=== PATIENT | female | born 1995 | race Caucasian/White ===

== ENCOUNTER 2024-01-31 13:27 | Inpatient (IN) | payer MEDICAID ==
[~2024-01-31] VITALS: Ht 157.5 cm; Wt 80.7 kg
[2024-01-31 14:17] VITALS: BP_SYST 126; PULSE 84; RESP 18; TEMP 97; O2SAT 100
[2024-01-31 15:06] LABS: BASOPHILS % (AUTO) 0.2 % (0.0-2.0); EOSINOPHILS # (AUTO) 0.1 K/uL (0.0-0.4); EOSINOPHILS % (AUTO) 1.1 % (0.0-4.0); HEMATOCRIT 39.5 % (36-48); HEMOGLOBIN 13.1 g/dL (12.0-16.0); LYMPHOCYTES # (AUTO) 1.3 K/uL (1.0-5.5); LYMPHOCYTES % (AUTO) 24.1 % (20.5-51.5); MEAN CORPUSCULAR HEMOGLOBIN 29 pg (27-31); MEAN CORPUSCULAR HGB CONC 33 % (32-36); MEAN CORPUSCULAR VOLUME 87 fL (79.0-98.0); MONOCYTES # (AUTO) 0.5 K/uL (0.0-1.0); MONOCYTES % (AUTO) 9.5 % (1.7-9.3); NEUTROPHILS # (AUTO) 3.5 K/uL (1.8-7.7); NEUTROPHILS % (AUTO) 65.1 % (40.0-70.0); PLATELET COUNT (AUTO) 246 K/uL (130-430); RED BLOOD CELL COUNT(AUTO) 4.53 MIL/uL (4.2-6.2); RED CELL DISTRIBUTION WIDTH 15.1 % (9.0-15.0); WHITE BLOOD COUNT (AUTO) 5.3 K/uL (4.8-10.8)
[2024-01-31 16:40] LABS: ALBUMIN 4.1 g/dL (3.4-4.8); BILIRUBIN,DIRECT 0.2 mg/dL (0.0-0.3); CREATININE 0.98 mg/dL (0.55-1.30); TOTAL BILIRUBIN 0.9 mg/dL (0.0-1.0); TOTAL PROTEIN, SERUM 9.1 g/dL (6.4-8.3)
[2024-01-31] MEDS: PIPERACILLIN/TAZO 3.375 GM in D5W 50 ML IV SCH (19:15)
[2024-01-31] MEDS ORDERED: LEVO125T8 PO (19:29)
[2024-01-31] MEDS ORDERED: MORPHINE 4 MG INJ. 4 MG/ML VIAL IVP PRN (19:30)
[2024-01-31 19:41] LABS: CALCIUM 9.5 mg/dL (8.4-11.0)
[2024-01-31] MEDS ORDERED: PIPERACILLIN/TAZOBACTAM 3.375 GM/VIAL (ZOSYN) IV ONE (19:56)
[2024-01-31] MEDS: NACL 0.9% 1,000 ML IV ONE (20:15)
[2024-01-31] MEDS: KETOROLAC TROMETHAMINE 30 MG VIAL IVP ONE (20:17)
[2024-01-31] MEDS: D5/0.45 NS 1,000 ML IV SCH (20:18)
[2024-01-31] MEDS ORDERED: LORazepam 2 MG/ML VIAL IVP PRN (23:00)
[2024-01-31] MEDS ORDERED: ONDANSETRON HCL 4 MG/2 ML VIAL IVP PRN (23:00)
[2024-01-31 23:54] LABS: BILIRUBIN,URINE NEGATIVE (NEGATIVE); BLOOD, URINE NEGATIVE (NEGATIVE); COLOR,URINE YELLOW (YELLOW); GLUCOSE,URINE NEGATIVE (NEGATIVE); KETONES,URINE TRACE (NEGATIVE); LEUKOCYTE ESTERASE ,URINE 3+ (NEGATIVE); NITRITE, URINE NEGATIVE (NEGATIVE); PROTEIN URINE NEGATIVE (NEGATIVE); UROBILINOGEN,URINE 0.2 (0.2-1.0)
[2024-02-01 00:08] LABS: CLARITY/URINE SLIGHTLY CLOUDY (CLEAR)
[2024-02-01 00:09] LABS: RBC,URINE 0-3 /HPF (0-3)
[2024-02-01 00:10] LABS: BACTERIA,URINE MODERATE /HPF (None Seen); WBC,URINE 20-50 /HPF (0-3)
[2024-02-01 06:36] LABS: BASOPHILS % (AUTO) 0.5 % (0.0-2.0); EOSINOPHILS # (AUTO) 0.2 K/uL (0.0-0.4); EOSINOPHILS % (AUTO) 3.8 % (0.0-4.0); HEMATOCRIT 34.1 % (36-48); HEMOGLOBIN 11.1 g/dL (12.0-16.0); LYMPHOCYTES # (AUTO) 1.4 K/uL (1.0-5.5); MEAN CORPUSCULAR HEMOGLOBIN 29 pg (27-31); MEAN CORPUSCULAR HGB CONC 33 % (32-36); MEAN CORPUSCULAR VOLUME 88 fL (79.0-98.0); MONOCYTES # (AUTO) 0.5 K/uL (0.0-1.0); MONOCYTES % (AUTO) 13.3 % (1.7-9.3); NEUTROPHILS # (AUTO) 1.8 K/uL (1.8-7.7); NEUTROPHILS % (AUTO) 46.4 % (40.0-70.0); PLATELET COUNT (AUTO) 204 K/uL (130-430); RED BLOOD CELL COUNT(AUTO) 3.89 MIL/uL (4.2-6.2); RED CELL DISTRIBUTION WIDTH 15.3 % (9.0-15.0); WHITE BLOOD COUNT (AUTO) 3.9 K/uL (4.8-10.8)
[2024-02-01 06:40] LABS: CALCIUM 8.3 mg/dL (8.4-11.0); CREATININE 0.93 mg/dL (0.55-1.30); POTASSIUM 3.7 mmol/L (3.5-5.1)
[2024-02-01 06:53] LABS: PROTHROMBIN TIME 10.3 SECS (9.5-12.5)
[2024-02-01] MEDS ORDERED: PIPERACILLIN/TAZO 3.375 GM in D5W 50 ML IV SCH (09:05)
[2024-02-01] MEDS: fentaNYL CITRATE/PF 100 MCG/2 ML AMP ONE (09:23)
[2024-02-01] MEDS: MIDAZOLAM HCL 2 MG/2 ML VIAL (VERSED) ONE (09:23)
[2024-02-01] MEDS: ACETAMINOPHEN I.V. 1000 MG 100 ML IV ONE (09:23)
[2024-02-01] MEDS ORDERED: NALOXONE HCL 0.4 MG/ML AMP (NARCAN) IVP PRN (09:30)
[2024-02-01] MEDS ORDERED: HYDROmorphone 1 MG/ML INJ. CARTRIDGE IVP PRN (09:30)
[2024-02-01] MEDS ORDERED: fentaNYL CITRATE/PF 100 MCG/2 ML AMP IVP PRN ×2 (09:30)
[2024-02-01] MEDS: LR 1,000 ML IV ONE (09:30)
[2024-02-01] MEDS: BUPIVACAINE LIPOSOME/PF 266 MG/20 ML VIAL INFIL ONE (09:34)
[2024-02-01] MEDS ORDERED: NEOSTIGMINE METHYLSULFATE 1 MG/ML, 10 ML VIAL ONE (09:38)
[2024-02-01] MEDS ORDERED: DEXAMETHASONE SOD PHOSPHATE 4 MG/ML VIAL ONE (09:38)
[2024-02-01] MEDS ORDERED: ONDANSETRON HCL 4 MG/2 ML VIAL ONE (09:38)
[2024-02-01] MEDS ORDERED: PIPERACILLIN/TAZOBACTAM 3.375 GM/VIAL (ZOSYN) IV ONE (09:38)
[2024-02-01] MEDS ORDERED: PROPOFOL 200MG/ 20ML VIAL (DIPRIVAN) IV ONE (09:38)
[2024-02-01] MEDS ORDERED: SEVOFLURANE 15 MIN GAS INH ONE (09:38)
[2024-02-01] MEDS ORDERED: NS IRRIG SOLN 1000 ML IR ONE (09:38)
[2024-02-01] MEDS ORDERED: WATER FOR IRRIGATION,STERILE 1,000 ML IRRIG.SOLN IR ONE (09:38)
[2024-02-01] MEDS ORDERED: LR 1,000 ML IV.SOLN IV ONE (09:38)
[2024-02-01] MEDS ORDERED: ROCURONIUM BROMIDE 10 MG/ML (ZEMURON) ONE (09:38)
[2024-02-01] MEDS ORDERED: GLYCOPYRROLATE 0.2 MG/ML VIAL ONE (09:38)
[2024-02-01] MEDS: PIPERACILLIN/TAZO 3.375 GM in NS 50 ML IV ONE (10:00)
[2024-02-01] MEDS: ONDANSETRON HCL 4 MG/2 ML VIAL IVP ONE (12:58)
[2024-02-01] MEDS: ONDANSETRON HCL 4 MG/2 ML VIAL IVP PRN (12:58)
[2024-02-01 13:15] VITALS: BP_SYST 120; PULSE 78; RESP 12; TEMP 97.5; O2SAT 99
[2024-02-01] MEDS: ONDANSETRON HCL 4 MG/2 ML VIAL ONE ×2 (14:16)
[2024-02-01] MEDS: PIPERACILLIN/TAZO 3.375 GM in NS 50 ML IV SCH (14:28)
[2024-02-01 14:49] VITALS: BP_SYST 122; PULSE 80; RESP 16; TEMP 97.7
[2024-02-01] MEDS: cefTRIAXone 1 GM in D5W 50 ML IV SCH (15:52)
[2024-02-01 16:00] VITALS: BP_SYST 113; PULSE 64; RESP 16; TEMP 98.6; O2SAT 98
[2024-02-01] MEDS: MORPHINE 2 MG/ML INJ. SYRINGE IVP PRN (16:06)
[2024-02-01 21:00] VITALS: BP_SYST 116; PULSE 86; RESP 18; TEMP 97.7; O2SAT 99
[2024-02-02 00:10] VITALS: BP_SYST 110; PULSE 16; RESP 18; TEMP 98.3
[2024-02-02] MEDS: LEVOTHYROXINE SODIUM 0.125 MG TABLET PO SCH (06:45)
[2024-02-02 07:53] LABS: BASOPHILS % (AUTO) 0.2 % (0.0-2.0); HEMATOCRIT 33.8 % (36-48); HEMOGLOBIN 10.9 g/dL (12.0-16.0); LYMPHOCYTES % (AUTO) 10.7 % (20.5-51.5); MEAN CORPUSCULAR HEMOGLOBIN 28 pg (27-31); MEAN CORPUSCULAR HGB CONC 32 % (32-36); MEAN CORPUSCULAR VOLUME 88 fL (79.0-98.0); MONOCYTES # (AUTO) 0.5 K/uL (0.0-1.0); MONOCYTES % (AUTO) 5.9 % (1.7-9.3); NEUTROPHILS # (AUTO) 7.5 K/uL (1.8-7.7); NEUTROPHILS % (AUTO) 83.2 % (40.0-70.0); PLATELET COUNT (AUTO) 210 K/uL (130-430); RED BLOOD CELL COUNT(AUTO) 3.84 MIL/uL (4.2-6.2); RED CELL DISTRIBUTION WIDTH 15.4 % (9.0-15.0)
[2024-02-02 08:00] VITALS: BP_SYST 107; PULSE 62; RESP 16; TEMP 97.4; O2SAT 98
[2024-02-02 08:00] LABS: ALBUMIN 2.9 g/dL (3.4-4.8); CALCIUM 8.4 mg/dL (8.4-11.0); TOTAL BILIRUBIN 0.5 mg/dL (0.0-1.0)
[2024-02-02] MEDS ORDERED: NALOXONE HCL 0.4 MG/ML AMP (NARCAN) IVP PRN ×2 (08:00)
[2024-02-02] MEDS ORDERED: HYDROcodone/ACETAMIN 10-325 MG TAB PO PRN (08:00)
[2024-02-02 08:17] LABS: ERYTHROCYTE SEDIMENTATION RATE 37 MM/HR (0-20)
[2024-02-02] MEDS ORDERED: HYDR-3917 PO (09:27)
[2024-02-02] MEDS: HYDROcodone/ACETAMIN 5-325 MG TAB (NORCO/ VICODIN) PO PRN (10:27)
[2024-02-02 12:47] VITALS: BP_SYST 107; PULSE 72; RESP 17; TEMP 97.8; O2SAT 97
[2024-02-02] MEDS: NORMAL SALINE 5 ML DISP.SYRIN IVF SCH (14:00)
[2024-02-02 14:14] VITALS: BP_SYST 110; PULSE 65; RESP 18; TEMP 97.8; O2SAT 98
== END 2024-02-02 15:10 | disposition home or self-care (01) | DRG 234 ==
LOC: SED 13:27 → SMU 19:20
PROVIDERS: ADMIT Preventive Medicine Preventive Medicine/Occupational Environmental Medicine; ATTEND Preventive Medicine Preventive Medicine/Occupational Environmental Medicine
PROC: 0DTJ4ZZ Resection of Appendix, Percutaneous Endoscopic Approach (ICD-10-PCS; principal; 2024-02-01 09:38)
DX: K35.80 Unspecified acute appendicitis (principal); E87.1 Hypo-osmolality and hyponatremia; E06.3 Autoimmune thyroiditis; G43.909 Migraine, unspecified, not intractable, without status migrainosus; D64.9 Anemia, unspecified; E88.09 Other disorders of plasma-protein metabolism, not elsewhere classified; R73.9 Hyperglycemia, unspecified; Z90.49 Acquired absence of other specified parts of digestive tract
CPT/HCPCS: 36415; 80048; 80053; 80076; 81000; 81001; 81015; 83605; 83690; 84702; 85025; 85610; 85651; 86886; 86900; 86901; 87040; 87081; 87086; 88304; 93005; 96365; 99285; C1727; C9290; J0131; J0696; J1100; J1885; J2270; J2405; J2543; J2704; J2710; J3010; J3465; J3490; J7060; J7120